=== PATIENT | male | born 1930 | race Caucasian/White ===

== ENCOUNTER 2016-07-03 06:05 | Observation (INO) | payer OTHER, BC ==
[2016-06-26 11:27] VITALS: Ht 175.3 cm; Wt 93.5 kg
--- NOTE | 2016-06-26 12:21 | PAT Medication Instructions ---
Service Date June 26, 2016. Current Home Medication List Aspirin (Aspirin Ec), 81 MG PO QAM Atorvastatin (Lipitor), 10 MG PO QPM Budesonide (Inhalation) (Pulmicort), BID Ferrous Sulfate (Kp Ferrous Sulfate), 1 TAB PO BID Finasteride (Proscar), 5 MG PO QAM Furosemide (Lasix), 40 MG PO BID Hydralazine Hcl (Apresoline), 10 MG PO QAM Isosorbide Mononitrate Ext Rel (Imdur Ext Rel), 1 TAB PO QAM Metoprolol Succ (Toprol Xl) (Toprol-Xl), 25 MG PO QPM Oxygen (Oxygen), 3 LITERS NA CONTINOUS Potassium Chloride (Micro-K Ext Rel), 20 MEQ PO BID Prednisone (Prednisone), 20 MG PO QAM Senna (Senokot), 1 TAB PO QAM Tamsulosin HCl (Tamsulosin HCl), 1 CAP PO QPM [albuterol neb], BID Medication Instructions For Your Scheduled Surgery Oxygen (Oxygen), 3 LITERS NA CONTINOUS (continue as directed) - Check with Dr. Beaulieu for instructions: Metoprolol Succ (Toprol Xl) (Toprol-Xl), 25 MG PO QPM\ Isosorbide Mononitrate Ext Rel (Imdur Ext Rel), 1 TAB PO QAM Furosemide (Lasix), 40 MG PO BID Aspirin (Aspirin Ec), 81 MG PO QAM Atorvastatin (Lipitor), 10 MG PO QPM - Hold the following medications the morning of surgery: Senna (Senokot), 1 TAB PO QAM Potassium Chloride (Micro-K Ext Rel), 20 MEQ PO BID Finasteride (Proscar), 5 MG PO QAM Ferrous Sulfate (Kp Ferrous Sulfate), 1 TAB PO BID - Take the following medications the morning of surgery with a sip of water: [albuterol neb], BID (bring with you to hospital morning of surgery) Prednisone (Prednisone), 20 MG PO QAM Hydralazine Hcl (Apresoline), 10 MG PO QAM Budesonide (Inhalation) (Pulmicort), BID - Take the following medications as scheduled the night before surgery: [albuterol neb], BID Tamsulosin HCl (Tamsulosin HCl), 1 CAP PO QPM Potassium Chloride (Micro-K Ext Rel), 20 MEQ PO BID Ferrous Sulfate (Kp Ferrous Sulfate), 1 TAB PO BID Budesonide (Inhalation) (Pulmicort), BID If you have any questions please call us at [phone] (Monica Powell PA-C ) or [phone] or [phone]
[2016-06-26 13:00] LABS: BASO % 0.1 %; BASO ABS # 0.01 K/uL (0-0.2); COMPLETE YES; HEMATOCRIT 36.7 % (42-52); LYMPH % 3.4 %; MEAN CELL VOLUME 98.1 fL (80-100); MEAN CORPUSCULAR HEMOGLOBIN 29.9 pg (25-34); MEAN CORPUSCULAR HGB CONC 30.5 g/dl (32-36); MEAN PLATELET VOLUME 9.8 fL (7.4-10.4); MONO % 3.2 %; NEUT % 92.3 %; PLATELET COUNT 162 K/uL (130-400); RED BLOOD COUNT 3.74 M/uL (4.7-6.1); WHITE BLOOD COUNT 8.75 K/uL (4.8-10.8)
--- NOTE | 2016-06-26 13:04 | DIAGNOSTIC IMAGING REPORT ---
CHEST PREADMISSION(PA/LAT) CLINICAL HISTORY: Preoperative chest COMPARISON STUDY: No previous studies for comparison. FINDINGS: The heart is mildly enlarged. There are postsurgical changes of midline sternotomy. There is a right subclavian dual-chamber central venous pacemaker present. There is interstitial thickening. There is no lobar consolidation. There is calcification of the anterior longitudinal ligament. No pleural effusions are visualized.[ IMPRESSION: Mild interstitial thickening, possibly chronic. No evidence of lobar consolidation. Electronically signed by: Kam Hale M.D. 06/26/2016 1:02 PM Dictated Date/Time: 06/26/2016 1:01 PM
[2016-06-26 13:17] LABS: PARTIAL THROMBOPLASTIN RATIO 0.9; PROTHROMBIN TIME (PATIENT) 10.6 SECONDS (9.0-12.0)
[2016-06-26 13:58] LABS: BUN/CREATININE RATIO 30.8 (10-20); CREATININE 1.6 mg/dl (0.60-1.40); POTASSIUM 4.9 mmol/L (3.5-5.1)
[2016-06-26 14:01] LABS: CALCIUM 9.4 mg/dl (8.5-10.1)
[~2016-07-03] VITALS: Ht 175.3 cm; Wt 93.5 kg
[~2016-07-03 06:05] MED LIST: ASPI81TA28 PO; ATOR10TA82 PO; BUDE1SUS; FERR1TAB13 PO; FINA5TAB PO; FLM4 PO; FRS/40 PO; HYDR-4715 PO; ISOS30TA35 PO; LACTATED RINGER'S 1000ML 1,000 ML IV SCH; METO25TA3 PO; OXGN; POTA10CA28 PO; PRED20TA PO; SENN-61 PO; albuterol neb
[2016-07-03 06:50] VITALS: O2SAT 99
[2016-07-03] MEDS ORDERED: LIDOCAINE HCL 1% 20 ML VIAL ONE (07:18)
[2016-07-03] MEDS ORDERED: BUPIVACAINE 0.5 % 5 MG/1 ML MPF 30ML VIAL ONE (07:19)
[2016-07-03] MEDS ORDERED: BACITRACIN 50000 UNIT VIAL ONE (07:21)
[2016-07-03] MEDS ORDERED: PROPOFOL IV EMULSION 10 MG/ML 100 ML VIAL IV ONE (07:31)
[2016-07-03] MEDS ORDERED: MIDAZOLAM HCL 1 MG/ML 2ML VIAL ONE ×3 (07:52→11:31)
[2016-07-03] MEDS ORDERED: FENTANYL CITRATE INJ 50 MCG/1 ML 2 ML VIAL ONE ×3 (07:52→12:27)
--- NOTE | 2016-07-03 07:58 | History & Physical Bridge Note ---
H&P Re-Evaluation Bridge Note: I have examined the patient, reviewed the History & Physical and in the interval since the performance of the History & Physical I have noted the following changes of clinical significance: No changes noted
[2016-07-03] MEDS ORDERED: PROPOFOL IV EMULSION 10 MG/ML 20 ML VIAL IV ONE ×2 (08:45→12:23)
[2016-07-03] MEDS ORDERED: EpHEDrine SULFATE 50MG/5ML SYR ONE (08:45)
[2016-07-03] MEDS ORDERED: PHENYLEPHRINE 100MCG/ML 5ML SYR ONE (08:45)
[2016-07-03] MEDS ORDERED: LIDOCAINE HCL 2% 2 ML VIAL (20MG/ML) ONE (08:45)
[2016-07-03] MEDS ORDERED: CEFAZOLIN SOD 1 GM VIAL ONE (08:58)
[2016-07-03] MEDS ORDERED: ATROPINE SULFATE 0.1 MG/ML 5ML SYR IV PRN (13:15)
[2016-07-03] MEDS ORDERED: EpHEDrine SULFATE INJ 50 MG/ML AMP IV PRN (13:15)
--- NOTE | 2016-07-03 13:24 | [facility] Post Operative Brief Note ---
Immediate Operative Summary Operative Date July 03, 2016. 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
--- NOTE | 2016-07-03 13:27 | Discharge Instructions ---
Discharge Instructions Date of Service July 03, 2016. Admission Reason for Admission: Complete Heart Block; Congestive Heart Failure Discharge Discharge Diagnosis / Problem: COMPLETE HEART BLOCK Discharge Goals Goal(s): Improve function Activity Recommendations Activity Limitations: as noted below Lifting Limitations: no more than 10 pounds Shower/Bathe: tomorrow (DO NOT LIFT THE RIGHT ELBOW OVER THE RIGHT SHOULDER FOR 1 MONTH; DO NOT LIFT MORE THAN 10 POUNDS WITH THE RIGHT ARM FOR 2 WEEKS) . Instructions / Follow-Up Instructions / Follow-Up ACTIVITY RECOMMENDATIONS: * Do not raise affected arm over head for 4 weeks. SPECIAL CARE INSTRUCTIONS: * If bleeding occurs, apply direct pressure to area for 5 minutes. * Call your doctor if you have severe pain, fever, drainage or bleeding at site. * Keep dressing on and dry for 48 hours then remove. * Keep any scheduled doctor's appointment. * Implant Card - hand held device with website information given. SKIN IRRITATION: * You may experience some redness and/or swelling in the area where radiation was administered. If any skin irritation occurs, please contact your family physician. FOLLOW UP VISIT: Keep any scheduled doctor appointments. Current Hospital Diet Patient's current hospital diet: Low Sodium Diet (2gm Na), AHA Diet (Heart Healthy) Discharge Diet Recommended Diet: AHA Diet (Heart Healthy), Low Sodium Diet (2gm Na) Procedures Procedures Performed: UPGRADE TO BI-VENTRICULAR RATE RESPONSIVE PERMANENT PACEMAKER WITH PERIPHERAL VENOGRAM Pending Studies Studies pending at discharge: no Medical Emergencies . Who to Call and When: Medical Emergencies: If at any time you feel your situation is an emergency, please call 911 immediately. . Non-Emergent Contact Non-Emergency issues call your: Relief Pharmacist . . "Provider Documentation" section prepared by Moon Beaulieu. . VTE Core Measure Inpt VTE Proph given/why not?: SCD's
--- NOTE | 2016-07-03 13:29 | Discharge Summary ---
Discharge Summary Date of Service July 03, 2016. 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 Procedures: UPGRADE TO BI VENTRICULAR PACEMAKER Medication Reconciliation Continued Medications: Aspirin (Aspirin Ec) 81 Mg Tab 81 MG PO QAM Atorvastatin (Lipitor) 10 Mg Tab 10 MG PO QPM, TAB Budesonide (Inhalation) (Pulmicort) 1 Mg/2 Ml Desi BID DOSE LISTED ON MED SHEET READS: 0.5MG/2ML Ferrous Sulfate (Kp Ferrous Sulfate) 325 Mg Tab 1 TAB PO BID, TAB Finasteride (Proscar) 5 Mg Tab 5 MG PO QAM, TAB Furosemide (Lasix) 40 Mg Tab 40 MG PO BID, TAB TAKES IN AM AND THEN AROUND 2 PM Hydralazine Hcl (Apresoline) 10 Mg Tab 10 MG PO QAM, TAB Isosorbide Mononitrate Ext Rel (Imdur Ext Rel) 30 Mg Tabcr 1 TAB PO QAM, TAB Metoprolol Succ (Toprol Xl) (Toprol-Xl) 25 Mg Tabcr 25 MG PO QPM, #30 TAB Oxygen (Oxygen) Gas 3 LITERS NA CONTINOUS Potassium Chloride (Micro-K Ext Rel) 10 Meq Capcr 20 MEQ PO BID, CAP Prednisone (Prednisone) 20 Mg Tab 20 MG PO QAM, TAB Senna (Senokot) 8.6 Mg Tab 1 TAB PO QAM, TAB Tamsulosin HCl (Tamsulosin HCl) 0.4 Mg Cap 1 CAP PO QPM [albuterol neb] () BID duoneb 2.5-0.5mg/3ml listed on pt med list.. 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 Pt underwent procedure without any complications; monitored overnight and discharged home following day. Total time spent on discharge = This includes examination of the patient, discharge planning, medication reconciliation, and communication with other providers. Discharge Instructions ACTIVITY RECOMMENDATIONS: * Do not raise affected arm over head for 4 weeks. SPECIAL CARE INSTRUCTIONS: * If bleeding occurs, apply direct pressure to area for 5 minutes. * Call your doctor if you have severe pain, fever, drainage or bleeding at site. * Keep dressing on and dry for 48 hours then remove. * Keep any scheduled doctor's appointment. * Implant Card - hand held device with website information given. SKIN IRRITATION: * You may experience some redness and/or swelling in the area where radiation was administered. If any skin irritation occurs, please contact your family physician. FOLLOW UP VISIT: Keep any scheduled doctor appointments.
[2016-07-03] MEDS ORDERED: IV FLUIDS COMPLETED PRN (13:45)
--- NOTE | 2016-07-03 14:39 | Anesthesiology Progress Note ---
Anesthesia Post Op Note Date & Time July 03, 2016 at 14:39 Vital Signs Pain Intensity: 0 Vital Signs Past 12 Hours Date Time Temp Pulse Resp B/P Pulse Ox O2 Delivery O2 Flow Rate FiO2 07/03/16 13:45 36.4 83 16 108/60 97 Nasal Cannula 3 07/03/16 13:35 36.4 84 16 123/60 98 Nasal Cannula 3 07/03/16 13:25 36.4 85 16 114/60 98 Nasal Cannula 3 07/03/16 13:10 75 16 94 Nasal Cannula 3 07/03/16 06:50 99 Nasal Cannula 3 Notes Mental Status: alert / awake / arousable, participated in evaluation Pt Amnestic to Procedure: Yes Nausea / Vomiting: adequately controlled Pain: adequately controlled Airway Patency, RR, SpO2: stable & adequate BP & HR: stable & adequate Hydration State: stable & adequate Anesthetic Complications: no major complications apparent
[2016-07-03 15:43] VITALS: BP 101/56; PULSE 87; TEMP 36.4; O2SAT 98
--- NOTE | 2016-07-03 15:45 | OPERATIVE REPORT ---
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 POSTOPERATIVE DIAGNOSIS: Same. PROCEDURE: Upgrade to a biventricular rate responsive permanent pacemaker under fluoroscopic guidance along with peripheral venogram. SURGEON: Dr. Moon Beaulieu. ASSISTANTS: None. ANESTHESIA: Monitored anesthetic care was given via anesthesiology. A total of 6 mg of Versed, 300 mcg of fentanyl, and 760 mg of propofol. START TIME: 9:09. END TIME: 13:10. Again, this is via anesthesiology so they look for it. COMPLICATIONS: None. CONDITION: Stable. BLOOD LOSS: 50 mL. ANTIBIOTICS: Two grams of Ancef. IV FLUIDS: 2150 mL. CONTRAST: 35 mL. URINE OUTPUT: Not applicable. SPECIMENS: None. FINDINGS: None. DRAINS: None. INDICATIONS: This is an 86-year-old gentleman who has a past medical history for complete heart block for which he underwent a permanent pacemaker dual chamber in 2012. He is now a 100% RV paced and his ejection fraction has been slowly decreasing. 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 Due to his complete heart block with a 100% RV pacing and worsening cardiomyopathy, it was recommended consideration for an upgrade to a biventricular device. He did not wish to have a defibrillator, but is willing to try to a biventricular pacemaker. CONSENT: Consent was obtained prior to the patient going into the electrophysiology lab. The patient was informed of risks, benefits, and alternatives to the procedure. Risks include but not limited to sudden cardiac arrhythmias, cerebrovascular accident, myocardial infarction, injury to the blood vessels, chamber of the heart, lungs, bleeding and infection. The patient understood these risks and agreed to the procedure as planned. Informed consent was obtained. DESCRIPTION OF THE PROCEDURE: The patient was brought in to the electrophysiology lab in a fasting state. He was connected to continuous contract associate. A timeout was performed to ensure patient's identity and procedure correctly. Before draping, we did a peripheral venogram with 10 mL of IV contrast diluted in 10 mL of saline followed by a 20 mL flush in the right peripheral vein to ensure that it was not occluded. Once we ensured patency, he was then prepped and draped over the right infraclavicular space in normal surgical standard fashion. Monitored anesthetic care was given throughout the procedure for patient's comfort level via anesthesiology support. [place] precautions were maintained throughout the procedure. The patient did receive 2 grams of IV Ancef prior to incision. A 10 mL of 1% lidocaine were given over the prior surgical incision. Incision was made over the prior surgical incision. Then venous access was obtained with an axillary stick. A Glidewire was inserted without any resistance and a 9.5-Tajik sheath was inserted. There was some difficulty getting the sheath passed the tight junction of the subclavian to the SVC right at the clavicle first rib area. Then the dilator was removed, then an MPX outer sheath right-sided from [employer] was used and advanced to the right atrium. The dilator and Glidewire removed. A CS diagnostic Decapolar catheter was then used to cannulate the coronary sinus. Once that was cannulated, the outer MPX sheath was advanced over that into the coronary sinus, then the diagnostic quadripolar EP catheter was removed and a venogram of the coronary sinus was performed. There was one branch, smaller in the posterolateral region. I was able to cannulate this directly with the lead, using a stylet. Then I took the stylet out and placed Whisper wire through the lead to see if I could advance the lead anymore out into the vessel. With doing this, everything did pull back it out of the coronary sinus. It took me a while, I was having trouble then recannulating the coronary sinus. I even used a new coronary sinus Decapolar EP catheter. Then I was going to try an outer sheath, inserted the MPX Levering. However, when I could not pass the Levering through that tight acute angle up top from the subclavian to SVC right under the clavicle area, I ended up losing access altogether, so then I re-got axillary access again and set up again how I initially did with a 9.5-Tajik sheath followed by the MPX right-sided outer sheath followed by a coronary sinus Decapolar diagnostic EP catheter, recannulated the coronary sinus. I performed another additional venogram to make sure there was no other vessel that I was missing. Then I used a Whisper wire and got out into that vessel, the posterior lateral branch. I then passed an inner [address] catheter from [employer] and got it out into the branch of the coronary sinus that had acute angle followed then by able to pass my outer sheath further up into the coronary sinus. I then was able to pass the pacing lead out into the vessel and guided over the Whisper wire almost to the point of another turn. (of note with all these attempts, I did lose coronary sinus cannulation a few times and at one point I also tried a different pacing lead, it was a Medtronic 4396 straight coronary sinus lead 5-Tajik 78 cm, but ultimately I ended up going with the other canted lead). We had acceptable thresholds and impedance. Then I removed the Whisper wire and a stylet was placed for support into the lead. The inner 90 catheter sheath was then split under fluoroscopic guidance followed then by the outer MPX sheath was split under fluoroscopic guidance followed then by the 9.5-Tajik sheath was split and peeled away. The lead was then fixated to the pectoralis muscle using 0 silk suture. The prior pulse generator was removed from the capsule, the leads were tested intraoperatively and then all leads were attached to the new pulse generator making sure that the pins were in appropriate position, passed the set screws and the set screws were all tightened. The pacemaker pocket was expanded inferiorly and caudally to fit the new device better as well as allow for new blood flow. The pocket was flushed with copious amounts of bacitracin saline wash and inspected for hemostasis. The new pulse generator was then placed in the pocket, making sure that the leads were lying flat beneath the device. The incision was then closed in a 3-layer fashion, 2-0 Vicryl suture followed by 3-0 Vicryl interrupted suture followed by a 4-0 Monocryl running stitch. Of note, I did put an Alexander stat in the pocket to prevent any further oozing and Steri-Strips were used to secure over the incision and a pressure dressing was placed. EQUIPMENT: 1. Explanted generator Diana [id number], serial #[id number], implanted 03/09/2012. Voltage 2.79 volts. 2. New pulse generator [employer] Viva DUBBING MACHINE OPERATOR-P [id number], serial #[id number]. 3. Right atrial lead 5076-45, serial #[id number], implant date 03/09/2012. 4. Right ventricular lead 5076-52 cm, serial #[id number], implant date 03/09/2012. 5. The left ventricular pacing lead Med[employer]onic 4296-78 cm, serial number [id number]. INTRAOPERATIVE TESTIN. Right atrial lead: P-wave 4.2 millivolts, impedance 393 ohms, threshold 0.7 volts at 1.8 milliamps. 2. Right ventricular lead: No R-waves as the patient has complete heart block. Impedance 396 ohms, threshold 0.7 volts at 1.8 milliamps. 3. Left ventricular lead impedance 663 ohms, threshold 2.6 volts at 0.1 milliamps. FINAL MEASUREMENTS THROUGH THE DEVICE: 1. Right atrial lead waves 4.5 millivolts, impedance 399 ohms, threshold 1 volt at 0.4 milliseconds. 2. Right ventricular lead: No R-waves as the patient complete heart block. Impedance 380 ohms, threshold 0.75 volts at 0.4 milliseconds. 3. Left ventricular lead: impedance MITES programmed bipolar LV tip to LV ring, impedance 494 ohms, threshold 1.25 volts at 0.4 milliseconds. FINAL PARAMETERS: DDDR 60/130, right antrum atrial amplitude 2 volts, pulse width 0.4 milliseconds, sensitivity 0.3 millivolts. Right ventricular amplitude 2 volts, pulse width 0.4 milliseconds, sensitivity 1.2 millivolts. Left ventricular amplitude 4 volts, pulse width 0.4 milliseconds. IMPRESSION: Successful upgrade to a biventricular pacemaker under fluoroscopic guidance along with peripheral venogram due to complete heart block with 100% RV pacing and worsening cardiomyopathy. PLAN: Monitor patient overnight, 12-lead ECG, chest x-ray. He can continue his home medications. He is not allowed to lift the right elbow or left shoulder for 1 month and not to lift more than 10 pounds with the right arm for 2 weeks. He should follow up in our [place] office in 7-10 days for device recheck. I attest to the content of the Intraoperative Record and any orders documented therein. Any exceptio ns are noted below.
[2016-07-03] MEDS: FUROSEMIDE 40 MG TAB PO SCH (18:12)
[2016-07-03 19:15] VITALS: BP 103/56; PULSE 87; TEMP 36.8; O2SAT 97
[2016-07-03] MEDS ORDERED: METOPROLOL SUCC 25MG EXT REL TAB PO SCH (21:00)
[2016-07-03] MEDS ORDERED: ATORVASTATIN 10 MG TAB PO SCH (21:00)
[2016-07-03] MEDS ORDERED: TAMSULOSIN HCL 0.4 MG CAP PO SCH (21:00)
[2016-07-03] MEDS: CEFAZOLIN IV 2,000 MG in DEXTROSE 5% 50ML 50 ML IV SCH (21:13)
[2016-07-03] MEDS: ACETAMINOPHEN 325 MG TAB PO PRN (21:14)
[2016-07-03] MEDS: FERROUS SULFATE 325 MG TAB PO SCH (21:16)
[2016-07-03] MEDS: POTASSIUM CHLORIDE 10 MEQ TABCR PO SCH (21:17)
[2016-07-03 23:49] VITALS: BP 113/61; PULSE 76; TEMP 36.5; O2SAT 96
[2016-07-04] MEDS: ACETAMINOPHEN 325 MG TAB PO PRN (03:16)
[2016-07-04 03:59] VITALS: BP 126/48; PULSE 85; TEMP 36.6; O2SAT 95
[2016-07-04] MEDS: CEFAZOLIN IV 2,000 MG in DEXTROSE 5% 50ML 50 ML IV SCH (05:47)
--- NOTE | 2016-07-04 06:53 | DIAGNOSTIC IMAGING REPORT ---
CHEST 2 VIEWS ROUTINE CLINICAL HISTORY: Pacemaker placement COMPARISON STUDY: 06/26/2016 FINDINGS: There is been change in the generator of the dual-lumen right-sided central venous pacemaker. In addition a third lead has been placed. No pneumothorax is visualized. The heart is mildly enlarged. There is radiographic evidence of emphysema. There is chronic interstitial change similar to the preceding study. There is ankylosis of the dorsal spine. There is minor blunting of the left lateral costophrenic angle. IMPRESSION: 1. No evidence of pneumothorax 2. Emphysema and chronic interstitial changes Electronically signed by: Kam Hale M.D. 07/04/2016 6:51 AM Dictated Date/Time: 07/04/2016 6:49 AM
[2016-07-04 07:20] VITALS: BP 137/61; PULSE 84; TEMP 36.2; O2SAT 97
--- NOTE | 2016-07-04 08:31 | Cardiology Follow-Up ---
Subjective Subjective Date of Service: July 04, 2016. Pt evaluation today including: conversation w/ patient, physical exam, lab review, review of studies Pain: minimal discomfort at incision site Review of Systems Constitutional: + fatigue Respiratory: No dyspnea on exertion, No shortness of breath Cardiac: + edema, No chest pain, No palpitations Abdomen: No constipation, No diarrhea Endo: + fatigue Objective Vital Signs Last Vital Signs Documentation Date Time Temp Pulse Resp B/P Pulse Ox O2 Delivery O2 Flow Rate FiO2 07/04/16 07:20 36.2 84 18 137/61 97 2.0 07/04/16 04:00 Nasal Cannula Physical Exam: General Appearance: WD/WN, no apparent distress Eyes: bilateral eyes EOMI, bilateral eyes PERRL Neck: supple, no JVD Respiratory/Chest: lungs clear, normal breath sounds Cardiovascular: regular rate, rhythm, + systolic murmur (+1 LE edema b/l) Abdomen: soft Neurologic/Psychiatric: alert, oriented x 3 Skin: warm/dry (right pectoral incision intact; no hematoma +ecchymosis; some skin tears from ioband drap from yesterday over the sternum noted; ecchymosis of limbs b/l noted) Assessment and Plan Impression: 1. CHB with 100% RV paced s/p upgrade to BiV ppm 07/03/2016 2. Cardiomyopathy combined Non-ischemic and ischemia; EF 35% 3. Chronic combined systolic and diastolic HF, NYHA class III 4. CAD h/o inferior [place] 2003 5. HLD 6. HTN 7. COPD on supplemental oxygen Plan: -Ok for discharge home today -Continue home medications -Pt not allowed to lift the right elbow over the right shoulder for 1 month and not allowed to lift more than 10 pounds with the right arm for 2 weeks -Can shower tomorrow -F/u in [place] in 1 week Discharge planning: home Medications: Medications Administered Medications (Trade) Dose Ordered Sig/Yuli Route Start Time Stop Time Status Last Admin Dose Admin Cefazolin Sodium/ Dextrose (Ancef Iv/D5 50ml) 60 ml @ 100 mls/hr Q8H IV 07/03/16 22:00 07/04/16 06:35 DC 07/04/16 05:47 100 MLS/HR Acetaminophen (Tylenol Tab) 650 mg Q4H PRN PO 07/03/16 13:30 08/02/16 13:29 07/04/16 03:16 650 MG Atorvastatin Calcium (Lipitor Tab) 10 mg QPM PO 07/03/16 21:00 08/02/16 20:59 07/03/16 21:15 10 MG Furosemide (Lasix Tab) 40 mg BID17 PO 07/03/16 17:00 08/02/16 16:59 07/03/16 18:12 40 MG Metoprolol Succinate (Toprol Xl Tab) 25 mg QPM PO 07/03/16 21:00 08/02/16 20:59 07/03/16 21:16 25 MG Potassium Chloride (Klor-Con M10) 20 meq BID PO 07/03/16 21:00 08/02/16 20:59 07/03/16 21:17 20 MEQ Tamsulosin HCl (Flomax Cap) 0.4 mg QPM PO 07/03/16 21:00 08/02/16 20:59 07/03/16 21:16 0.4 MG Ferrous Sulfate (Feosol Tab) 325 mg BID PO 07/03/16 21:00 08/02/16 20:59 07/03/16 21:16 325 MG Lab Results: Telemetry:BiV Paced occasional PVC ECG: BiV paced CXR: No PTX LV lead in position RA and RV lead in position Pacemaker Interrogation Today: Stable LV lead impedance and threshold from implant RA and RV testing stable
--- NOTE | 2016-07-04 08:50 | Anesthesiology Progress Note ---
Anesthesia Post Op Note Date & Time July 04, 2016 at 08:50 Vital Signs Pain Intensity: 7.0 Vital Signs Past 12 Hours Date Time Temp Pulse Resp B/P Pulse Ox O2 Delivery O2 Flow Rate FiO2 07/04/16 07:20 36.2 84 18 137/61 97 2.0 07/04/16 04:00 Nasal Cannula 3.0 07/04/16 03:59 36.6 85 20 126/48 95 Nasal Cannula 2.0 07/04/16 00:00 Nasal Cannula 3.0 07/03/16 23:49 36.5 76 20 113/61 96 Nasal Cannula 2.0 Notes Mental Status: alert / awake / arousable, participated in evaluation Anesthetic Complications: no major complications apparent
[2016-07-04] MEDS: POTASSIUM CHLORIDE 10 MEQ TABCR PO SCH (08:52)
[2016-07-04] MEDS: FERROUS SULFATE 325 MG TAB PO SCH (08:52)
[2016-07-04] MEDS: FUROSEMIDE 40 MG TAB PO SCH (08:54)
[2016-07-04] MEDS ORDERED: HydrALAZINE 10 MG TAB PO SCH (09:00)
[2016-07-04] MEDS ORDERED: SENNA 8.6 MG TAB PO SCH (09:00)
[2016-07-04] MEDS ORDERED: FINASTERIDE 5 MG TAB PO SCH (09:00)
[2016-07-04] MEDS ORDERED: ISOSORBIDE MONONITRATE 30 MG TABCR PO SCH (09:00)
[2016-07-04] MEDS ORDERED: ASPIRIN 81 MG ECTAB PO SCH (09:00)
[2016-07-04 09:13] VITALS: BP 137/61; PULSE 84; TEMP 36.2; O2SAT 97
[2016-07-04 11:20] VITALS: BP 104/61; PULSE 84; TEMP 37; O2SAT 95
== END 2016-07-04 13:00 | disposition home or self-care (01) ==
LOC: ENRESERVDT → ENRESERVTM → C.ACU 06:05 → C.2T 13:22
PROVIDERS: ADMIT Internal Medicine; ATTEND Internal Medicine
DX: I44.2 Atrioventricular block, complete (principal); I50.42 Chronic combined systolic (congestive) and diastolic (congestive) heart failure; I25.10 Atherosclerotic heart disease of native coronary artery without angina pectoris; I25.5 Ischemic cardiomyopathy; I25.2 Old myocardial infarction; N18.3 Chronic kidney disease, stage 3 (moderate); J44.9 Chronic obstructive pulmonary disease, unspecified; K21.0 Gastro-esophageal reflux disease with esophagitis; Z95.0 Presence of cardiac pacemaker; Z99.81 Dependence on supplemental oxygen; Z79.82 Long term (current) use of aspirin; Z80.3 Family history of malignant neoplasm of breast; Z87.891 Personal history of nicotine dependence; Z87.442 Personal history of urinary calculi; E66.9 Obesity, unspecified; I12.9 Hypertensive chronic kidney disease with stage 1 through stage 4 chronic kidney disease, or unspecified chronic kidney disease